=== PATIENT | female | born 1960 | race Two or more races ===

== ENCOUNTER 2020-07-04 01:31 | Emergency (ER) | payer OTHER ==
[~2020-07-04] VITALS: Ht 160 cm; Wt 67.1 kg
[2020-07-04] MEDS ORDERED: NORFLEX100MG PO (04:33)
[2020-07-04] MEDS ORDERED: DICLOFENAC SODI75 MG PO (04:33)
== END 2020-07-04 04:43 | disposition home or self-care (01) ==
LOC: ER 01:31
DX: M54.5 Low back pain (principal)